=== PATIENT | female | born 1990 | race Two or more races ===

== ENCOUNTER 2024-10-29 10:23 | Emergency (ER) | payer OTHER ==
[~2024-10-29] VITALS: Ht 157.5 cm; Wt 72.6 kg
[2024-10-29] MEDS ORDERED: KETOROLAC TROMETHAMINE 30 MG VIAL IM ONE (11:15)
[2024-10-29] MEDS ORDERED: ORPHENADRINE CITRATE 30 MG/ML AMPUL IM ONE (11:15)
[2024-10-29] MEDS ORDERED: KETOROLAC TROMETHAMINE 30 MG VIAL ONE (11:25)
[2024-10-29] MEDS ORDERED: ORPHENADRINE CITRATE 30 MG/ML AMPUL ONE (11:26)
== END 2024-10-29 16:22 | disposition home or self-care (01) ==
LOC: ER 10:26
DX: M54.89 Other dorsalgia (principal)